=== PATIENT | male | born 1990 | race Caucasian/White ===

== ENCOUNTER 2021-12-17 10:31 | Emergency (ER) | payer BC, SELFPAY ==
[2021-12-17 10:38] VITALS: BP 143/84; PULSE 100; RESP 20; TEMP 37.1; O2SAT 100
--- NOTE | 2021-12-17 10:54 | ED.URI ---
HPI - URI/Sore Throat General Chief Complaint: Upper Respiratory Infection Stated Complaint: Sinus Congestion/Cough Time Seen by Provider: 12/17/21 10:36 Source: patient and RN notes reviewed History of Present Illness HPI Narrative: Patient is a 31-year-old male who presents the urgent care with complaints of sinus pressure, postnasal drainage and cough. Patient states has been going on for 2 weeks with nausea and body aches that started today. Patient has been taking DayQuil, Zyrtec and Robitussin. Denies of any ill exposures. Denies a fever. No other acute complaints. No acute distress noted. Patient aware of the plan of care. Some parts of this dictation were generated by voice recognition software and may contain typographical and/or grammatical inaccuracies. Related Data Allergies Allergy/AdvReac Type Severity Reaction Status Date / Time No Known Allergies Allergy Verified 12/17/21 10:48 Review of Systems Review of Systems: CONSTITUTIONAL: Denies fever, chills, or sweats. EYES: Denies visual changes, redness, or discharge. ENT: reports of sinus pressure/congestion, postnasal drainage CARDIOVASCULAR: Denies chest pain, palpitations, or edema. RESPIRATORY: Reports a mild cough without dyspnea GASTROINTESTINAL: Denies abdominal pain, nausea, vomiting, or diarrhea. GENITOURINARY: Denies dysuria or hematuria. SKIN: Denies rash or itching. MUSCULOSKELETAL: Denies back pain, joint pain. Reports of body aches NEUROLOGIC: Denies headache, numbness, or weakness. All other systems reviewed are negative, except as documented in HPI. PMFSH Comments At the time of my signature, I reviewed and agree with the nursing past medical, surgical, social, and family history. There is no relevant family history pertinent to the patient complaint. Exam Narrative: GENERAL: This is a well-nourished, well-developed patient, in no apparent distress. HEAD: normocephalic, atraumatic. Mild frontal sinus pressure EYES: PERRL. Sclera clear/white. Vision is grossly intact. EARS: External ears normal, auditory canals clear and without drainage, TMs normal without perforation. Hearing grossly intact. NOSE: External nose normal with no obvious nasal discharge. Bilateral erythemic nares with clear rhinorrhea THROAT: Mucous membranes moist, posterior pharynx clear. Moderate postnasal drainage NECK: Neck supple, non-tender without lymphadenopathy CARDIOVASCULAR: Regular rate and rhythm without murmurs, gallops, or rubs. RESPIRATORY: Clear to auscultation. Breath sounds equal bilaterally. No wheezes, rales, or rhonchi. SKIN: warm, intact with no suspicious lesions or rash, good texture and turgor. NEURO: awake, alert, and oriented to person, place and time. There were no obvious focal neurologic abnormalities. EXTREMITIES: No clubbing, cyanosis, or edema. Course Course Level of Care: Express Care Visit Vital Signs Vital signs: Vital Signs Temperature 98.8 F 12/17/21 10:38 Pulse Rate 100 12/17/21 10:38 Respiratory Rate 20 12/17/21 10:38 Blood Pressure 143/84 H 12/17/21 10:38 Pulse Oximetry 100 12/17/21 10:38 Temperature 98.8 F 12/17/21 10:38 Pulse Rate 100 12/17/21 10:38 Respiratory Rate 20 12/17/21 10:38 Blood Pressure 143/84 H 12/17/21 10:38 Pulse Oximetry 100 12/17/21 10:38 Reviewed-patient is informed that they may have pre-hypertension or hypertension based on a blood pressure reading in the department. I recommend the patient call the primary care provider listed on their discharge instructions or a physician of their choice this week to arrange follow-up for further evaluation of possible pre-hypertension or hypertension. MDM - URI/Sore Throat MDM Narrative Medical decision making narrative: Reviewed lab results with the patient. He is aware that flu swab was negative. Advised patient take a daily allergy medication such as his daily Zyrtec with Robitussin in the evenings. Use Flonase nasal spray prior to
== END 2021-12-17 11:15 | disposition home or self-care (01) ==
PROVIDERS: Emergency Provider Nurse Practitioner Family
DX: J32.9 Chronic sinusitis, unspecified (principal)
CPT/HCPCS: 87804; 99213; G0463

== ENCOUNTER 2022-09-01 13:45 | Emergency (ER) | payer BC, SELFPAY ==
[2022-09-01 13:50] VITALS: BP 155/95; PULSE 104; RESP 20; TEMP 37.1; O2SAT 98
--- NOTE | 2022-09-01 13:54 | ED.EAR ---
HPI - Ear Problem General Chief complaint: Ear Stated complaint: Left Ear Pain Time Seen by Provider: 09/01/22 13:55 Source: patient Mode of arrival: ambulatory Limitations: no limitations History of Present Illness HPI Narrative: Mr. Clarke is a 32-year-old male patient presenting to clinic today with complaints of left ear pain 3 days. He reports he started out with the sore throat is gone up to his ear. States the sore throat is now resolved however he is still having ear pain. Related Data Allergies Allergy/AdvReac Type Severity Reaction Status Date / Time No Known Allergies Allergy Verified 12/17/21 10:48 Review of Systems Review of Systems: Pertinent positives per HPI. Patient denies any fever, chills, rash, headache, visual changes, dizziness, cough, runny nose, sore throat, shortness of breath, chest pain, palpitations, nausea, vomiting, diarrhea, constipation, abdominal pain, or any urinary issues. PMFSH Comments At the time of my signature, I reviewed and agree with the nursing past medical, surgical, social, and family history. There is no relevant family history pertinent to the patient complaint. Exam Narrative: General: Well-developed, well nourished, in no apparent distress Head: Normocephalic, atraumatic Eyes: Pupils equally round and reactive to light bilaterally, EOM intact, sclera and conjunctive clear, no discharge, lids normal Ears: Right TMs intact and clear, left TM intact, red, bulging, ear canals clear, no drainage, grossly hearing normal. Nose: Nares patent, clear nasal discharge, no inflammation, no sinus tenderness. Mouth: Oropharynx without lesions or masses, good dentition, MMM. Neck: Supple, trachea midline, no enlargement of anterior or posterior cervical nodes, no thyroid masses or goiter palpable. Cardio: Regular rate and rhythm, s1 and s2 normal, no murmur appreciated. Resp: Clear to auscultation bilaterally anteriorly and posteriorly, no rhonchi, rales, wheezing or rubs Course Course Emergency Course: Portions of this record may have been created with voice recognition software. Level of Care: Express Care Visit Vital Signs Vital signs: Vital Signs Temperature 37.1 C 09/01/22 13:50 Pulse Rate 104 H 09/01/22 13:50 Respiratory Rate 20 09/01/22 13:50 Blood Pressure 155/95 H 09/01/22 13:50 Pulse Oximetry 98 09/01/22 13:50 Oxygen Delivery Room Air 09/01/22 13:50 Temperature 37.1 C 09/01/22 13:50 Pulse Rate 104 H 09/01/22 13:50 Respiratory Rate 20 09/01/22 13:50 Blood Pressure 155/95 H 09/01/22 13:50 Pulse Oximetry 98 09/01/22 13:50 Oxygen Delivery Room Air 09/01/22 13:50 Vital signs reviewed Medical Decision Making MDM Narrative Medical decision making narrative: At the time of visit patient is resting comfortably on the exam table. I suspect patient has left otitis media. Prescription for amoxicillin was sent to the pharmacy and supportive measures were discussed with the patient he voiced understanding of discharge instructions and agrees to treatment plan. Differential Diagnosis Differential Diagnosis: Otitis media, otitis externa, eustachian tube dysfunction, upper respiratory infection Vital Signs Vital Signs: Vital Signs Temperature 37.1 C 09/01/22 13:50 Pulse Rate 104 H 09/01/22 13:50 Respiratory Rate 20 09/01/22 13:50 Blood Pressure 155/95 H 09/01/22 13:50 Pulse Oximetry 98 09/01/22 13:50 Oxygen Delivery Room Air 09/01/22 13:50 Temperature 37.1 C 09/01/22 13:50 Pulse Rate 104 H 09/01/22 13:50 Respiratory Rate 20 09/01/22 13:50 Blood Pressure 155/95 H 09/01/22 13:50 Pulse Oximetry 98 09/01/22 13:50 Oxygen Delivery Room Air 09/01/22 13:50 Discharge Plan Discharge Clinical Impression: Otitis media Patient Disposition: Home, Self-Care Condition: Stable Instructions: Antibiotic Form, Ear Infection (ED) Additional Instructions: Take any prescribed medicat
== END 2022-09-01 14:12 | disposition home or self-care (01) ==
PROVIDERS: Emergency Provider Nurse Practitioner Family; PCP Family Medicine
DX: H66.92 Otitis media, unspecified, left ear (principal)
CPT/HCPCS: 99213; G0463